=== PATIENT | female | born 1975 | race Caucasian/White ===

== ENCOUNTER 2017-04-14 11:17 | Inpatient (IN) ==
[2017-04-16] MEDS ORDERED: ACETAMINOPHEN 500 MG TABLET PO PRN (21:50)
[2017-04-16] MEDS ORDERED: TERBUTALINE 1 MG/ML VIAL SQ PRN (21:50)
[2017-04-16] MEDS ORDERED: DINOPROSTONE 10 MG VAGINAL INSERT VG ONE (21:50)
[2017-04-16] MEDS ORDERED: CALCIUM CARBONATE Chewable 500mg TABLET PO PRN (21:50)
[2017-04-16] MEDS ORDERED: CARBOPROST 250 MCG/ML INJECTION IM PRN (21:50)
[2017-04-16] MEDS ORDERED: SALINE FLUSH 10ml SYRINGE IV PRN (21:50)
[2017-04-16] MEDS ORDERED: METHYLERGONOVINE 0.2 MG/ML INJECTION IM PRN (21:50)
[2017-04-16] MEDS ORDERED: MAG-AL + SIM ORAL LIQUID 30ml PO PRN (21:50)
[2017-04-16] MEDS: LR 1,000 ML IV PRN ×2 (22:14→23:55)
--- OUTSIDE RECORDS SUMMARY | 2017-04-16 22:17 | External Medical Summary | Continuity of Care Document ---
:1975 Author Organization [facility] Address [address] [place], [place] [id number] Phone Allergies, Adverse Reactions, Alerts Substance Reaction Severity Status No Known Drug Allergies Unknown Active Medications Medication Instructions Dosage Effective Dates Status Comments (start - stop) Unisom - Active (doxylamine) 25 mg tablet Vitamin take 1 tablet by Not Available - Active tablet oral route every day Problems Condition Effective Dates (start - stop) Clinical Status Supervision of elderly multigravida, - third trimester 36 weeks gestation of - Supervision of elderly primigravida, - first trimester Supervision of elderly multigravida, - first trimester 11 weeks gestation of - Nicotine dependence, cigarettes, uncomplicated 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 Pap Smear Screening, Cervix Encounter for oth general cnsl and advice on procreation Irregular Menses Suprvsn of preg w history of infertility, first trimester Oth related conditions, first trimester Supervision of elderly primigravida, - first trimester Less than 8 weeks gestation of - Supervision of elderly primigravida, - first trimester 8 weeks gestation of - Hemorrhage in early , - unspecified Supervision of elderly multigravida, - second trimester Matern care for oth or susp poor fetl - grth, 2nd tri, unsp 20 weeks gestation of - Supervision of elderly primigravida, - second trimester 20 weeks gestation of - Supervision of elderly primigravida, - second trimester 25 weeks gestation of - Supervision of elderly multigravida, - second trimester 27 weeks gestation of - Supervision of elderly multigravida, - third trimester 33 weeks gestation of - Supervision of elderly multigravida, - third trimester Oth related conditions, - third trimester 37 weeks gestation of - Supervision of elderly multigravida, - third trimester 38 weeks gestation of - Oth related conditions, unspecified trimester Encounter for test, result - positive Matern care for oth or susp poor fetl - grth, 2nd tri, unsp 16 weeks gestation of - Abnormal glucose complicating - Supervision of elderly multigravida, - third trimester Excessive weight gain in , - third trimester 30 weeks gestation of - Supervision of elderly multigravida, - third trimester 35 weeks gestation of - Supervision of elderly multigravida, - third trimester 39 weeks gestation of - Procedures Procedure Date OB Visit No Charge Results Test Name Date and Time Measure Units Reference Range Abnormal Flag Comments Unknown Advance Directives Directive Yes / No Effective Date File Name Unknown Encounters Encounter Practice Location Reason(s) Diagnoses Date Provider Care Team Description For Visit Members Iker [place] Supervision of Apr- Arevalo In Womens elderly 5-201 [facility]. cristian Murrellavilorena, 7 700 [address] [email or web address] Medical 1522, weeks gestation [facility] of Mark Dominguez, 120, [id number], [place], [place], tel:[phone] , [place]. tel:[phone] Iker [place] Supervision of Mar- Arevalo In Womens elderly 9-201 Clau. Susie CARNES multigravida, 7 700 [address] third [email or web address] Medical 1522, weeks gestation [facility], of Mark Dominguez, 120, [id number], [place], tel:+ [phone] , [place]. tel:[phone] Iker [place] Supervision of Aug-2 Arevalo In Womens elderly 3-201 [facility], multigravida, 7 700 [address] third Medical 1522, trimesterOth [facility], related Mark Dominguez, conditions, third 120, [id number], weeks [place] gestation of [place], tel:[phone] , [place]. tel:[phone] Iker [place] Supervision of Aug-1 Arevalo In Womens elderly 5-201 [facility], multigravida, 7 700 [address] third [email or web address] Medical 1522, weeks gestation [facility], of Mark Dominguez, 120, [id number], [place], tel:+ [phone] , [place]. tel:[phone] Iker [place] Supervision of Aug-0 Arevalo In Womens elderly 8-201 [facility], multigravida, 7 700 [address] third [email or web address] Medical 1522, weeks gestation [facility], of Mark Dominguez, 120, [id number], [place], tel:+ [phone] , [place]. tel:[phone] Iker [place] Supervision of Feb-2 Arevalo In Womens elderly 4-201 [facility], multigravida, 7 700 [address] third [email or web address] Medical 1522, weeks gestation [facility], of Mark Dominguez, 120, [id number], [place], tel:[phone] , [place]. tel:[phone] Iker [place] Supervision of Jhony-0 Arevalo In Womens elderly 7-201 [facility], multigravida, 7 700 PO Box third Medical 1522, trimesterExcessiv [facility], e weight gain in Mark Dominguez, , third 120, [id number], [email or web address] weeks [place], [place] gestation of [place], tel:+ , [place]. tel:[phone] Iker [place] Abnormal glucose Hood-2 Arevalo In Womens complicating 0-201 [facility], 7 700 PO [address] Medical 1522, [facility], Mark Dominguez, 120, [id number], [place], tel:[phone] , [place]. tel:[phone] Iker [place] Supervision of Hood-1 Arevalo In Womens elderly 5-201 [facility], multigravida, 7 700 PO Box second Medical 1522, [email or web address] weeks [facility], gestation of Mark Dominguez, 120, , [facility] [place], tel:[phone] , [place]. tel: [phone] Iker [place] Supervision of May-3 Arevalo In Womens elderly 0-201 [facility], primigravida, 7 700 PO Box second Medical 1522, [email or web address] weeks [facility], gestation of Mark Dominguez, 120, , [facility] [place], tel:[phone] , [place]. tel:[phone] Iker [place] Supervision of Apr-2 Arevalo In Womens elderly 4-201 [facility], primigravida, 7 700 PO Box second Medical 1522, [email or web address] weeks [facility], gestation of Mark Dominguez, 120, , [facility] [place], tel:[phone] , [place]. tel:[phone] Iker [place] Supervision of Apr-2 Arevalo In Womens Ultrasound elderly 4-201 [facility], multigravida, 7 700 PO Box second Medical 1522, trimesterMatern [facility], care for oth or Mark Dominguez, susp poor fetl 120, [id number], grth, 2nd tri, [place], unsp20 weeks [place], tel:[phone] , [place]. tel:[phone] Iker [place] Matern care for Mar-3 Arevalo In Womens oth or susp poor 0-201 [facility], fetl grth, 2nd 7 700 PO Box tri, [email or web address] weeks Medical 1522, gestation of [facility], Mark Dominguez, 120, , [place], [place], tel:+ [phone] , [place]. tel: [phone] Iker [place] Supervision of Sep- Arevalo In Womens elderly 1-201 [facility], primigravida, 7 700 PO Box first Medical 1522, trimesterSupervis [facility], ion of elderly Mark Dominguez, multigravida, 120, [id number], first [email or web address] [place], weeks gestation [place], tel: of [phone] , [place]. tel: [phone] Iker [place] Supervision of Sep-0 Ashby In Womens elderly 2-201 Tiffanie. [facility], primigravida, 7 700 PO Box first trimester8 Medical 1522, weeks gestation [facility], of Mark Dominguez, pregnancyHemorrha 120, , [place] in early [facility] , [place], tel: unspecified [phone] , [place]. tel: [phone] Iker [place] Supervision of Arevalo Referring In Womens elderly 7-201 [facility]. Provider: Health [facility], primigravida, 7 700 Clau Arevalo PO Box first Medical [place], 700 1522, trimesterLess [facility], than [address] [facility] [place], gestation of 120, Mark 120, , [place], [place], [place], tel: [phone]. , [place]. tel: tel: [phone] Iker [place] Suprvsn of preg w Arevalo In Womens history of - [facility], infertility, 7 700 PO Box first Medical 1522, trimesterOth [facility], related Mark Dominguez, conditions, first 120, , trimester [place], tel: [phone] , [place]. tel: [phone] Associates [place] Oth Lynda In Womens related Tammi. [facility], conditions, 7 700 PO Box unspecified Medical 1522, trimesterEncounte [facility], r for Mrak Dominguez, test, result 120, [id number], positive [place], tel: [phone] , [place]. tel: [phone] Iker [place] Irregular Menses Arevalo In Womens [facility], 6 700 PO Box Medical 1522, [facility], Mark Dominguez, 120, [id number], [place], [place], tel: [phone] , [place]. tel: [phone] Iker [place] Nicotine Arevalo In Womens dependence, [facility]. [facility], cigarettes, 6 700 PO Box uncomplicatedEncn Medical 1522, tr for appeals examiner exam [facility], (general) Mark Dominguez, (routine) w/o abn 120, [id number], findingsPap Smear [place], [place], tel: CervixEncounter for ot general , . cnsl and advice tel: on procreation [phone] Family History Family Member Diagnosis Age At Onset Sister Stroke No family history of Pulmonary Embolism No family history of Venous Thrombosis Mother Diabetes Father Colon Cancer 75 Father Diabetes Mother Kidney Disease Immunizations Vaccine Date Status Comments Tdap completed Source: New Immunization Record Influenza, injectable, completed Source: New Immunization Record quadrivalent, preservative free, 3 yrs or older Rhophylac ordered Source: New Immunization Record Payers Payer name Insurance type Covered alliance party ID Authorization(s) [employer] CI [id number] [employer] CI [id number] [facility] CI [id number] [employer] CI [id number] [employer] CI [id number] [employer] CI [id number] [employer] CI [id number] Social History Type Description Quantity Date Captured Alcohol Use Details No Caffeine Use Details Unknown Tobacco Use Status Smoking Status Former smoker Vital Signs Date / Height Weight BMI Pulse Blood Temperature Respiratory Body Head BMI Time: Rate Pressure Rate Surface Circumference percentile Area 38.3 -2017 3 3:31 kg/m PM eter (2) 240.10 38.7 127/84 -2017 lbs 5 mm[Hg] 3:37 kg/m PM eter (2) Chief Complaint And Reason For Visit Unknown Chief Complaint And Reason For Visit Reason For Referral Reason For Referral Unknown Plan Of Care Date Type Action Status Goal Tobacco cessation counseling completed Appointment Desirae Garrido BOOKED Unknown Immunization Rhophylac ordered Future Order: Radiology Order Screening Bilateral Mammogram Ordered ([id number]) Future Order: Radiology Order OB Detailed Complete Ultrasound Ordered ([id number]) Date Type Problem Goal Intervention Status Start Date Unknown. History Of Present Illness Encounter Date Complaint History Of Present Illness This patient has no known history of present illness Functional Status Encounter Date Functional Assessment Cognitive Assessment Unknown Medications Administered Medication Instructions Dosage Effective Dates (start - stop) Status Comments Drug Treatment Unknown Instructions Date Instruction Additional Information labor signs group B strep screening HIV and other routine tests risk factors identified by history anticipated course of care nutrition and weight gain counseling, special diet toxoplasmosis precautions (cats / raw meat) exercise indications for ultrasound influenza vaccine environmental / work hazards travel tobacco (ask, advise, assess, assist and arrange) alcohol illicit / recreational drugs use of any medications (including supplements, vitamins, herbs, OTC drugs) smoking counseling domestic violence seat belt use genetic testing new ob handbook Zika virus assessment & precautions dentist, weight gain 20-25#
--- OUTSIDE RECORDS SUMMARY | 2017-04-16 22:17 | External Medical Summary | Continuity of Care Document ---
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 [...] Supervision of elderly multigravida, - second trimester 20 weeks gestation of - Matern care for oth or susp poor fetl - grth, 2nd tri, unsp Supervision of elderly primigravida, - second trimester [...] gestation of - Abnormal glucose complicating - Excessive weight gain in , - third trimester Supervision of elderly multigravida, - third trimester 30 weeks gestation of - Procedures Procedure Date OB Visit No Charge Cult, pathgnc orgnsm, screen Results Test Name Date and Time Measure Units Reference Range Abnormal Flag Comments Panel Description: STREPTOCOCCUS, GROUP B CULTURE STREPTOCOCCUS, GROUP B 15:00:00 SEE NOTE STREPTOCOCCUS, GROUP B CULTURE CULTURE MICRO NUMBER: [id number] TEST STATUS: FINAL SPECIMEN SOURCE: VAGINAL/ANORECTAL SPECIMEN QUALITY: ADEQUATE RESULT: No group B Streptococcus isolatedTest performed at [facility] [id number] [place] [address]Tlopjqhc: ADDISON GIBBONS DO,MPH Advance Directives Directive Yes / No Effective Date File Name Unknown Encounters Encounter Practice Location Reason(s) Diagnoses Date Provider Care Team Description For Visit Members Iker [place] Supervision of Arevalo In Womens elderly 9-201 [facility], multigravida, 7 700 [address] third [email or web address] Medical 1522, weeks gestation [facility], of Mark Dominguez, 120, [id number], [place], tel:+ [phone] , [place]. tel:[phone] Iker [place] Supervision of Aug-2 Arevalo In Womens elderly 3-201 [facility], multigravida, 7 700 PO Box third Medical 1522, trimesterOth [facility], related Mark Dominguez, conditions, third 120, [id number], [email or web address] weeks [place], [place] gestation of [place], tel:[phone] , [place]. tel:+[phone] Iker [place] Supervision of Aug-1 Arevalo In Womens elderly 5-201 [facility], multigravida, 7 700 PO Box third [email or web address] Medical 1522, weeks gestation [facility], of Mark Dominguez, 120, [id number], [place], tel:+ [phone] , [place]. tel: [phone] Iker [place] Supervision of Aug-0 Arevalo In Womens elderly 8- [facility], multigravida, 7 700 PO Box third [email or web address] Medical 1522, weeks gestation [facility], of Mark Dominguez, 120, [id number], [place], tel:+ [phone] , [place]. tel:[phone] Iker [place] Supervision of Feb-2 Arevalo In Womens elderly 4- [facility], multigravida, 7 700 PO Box third Medical 1522, weeks gestation [facility], of Mark Dominguez, 120, [id number], [place], tel:[phone] , [place]. tel:+[phone] Iker [place] Excessive weight Jhony-0 Arevalo In Womens gain in [facility], , third 7 700 PO Box trimesterSupervis Medical 1522, ion of elderly [facility], multigravida, Mark Dominguez, third [email or web address] 120, [id number], weeks gestation [place], [place], tel:[phone] , [place]. tel:+[phone] Iker [place] Abnormal glucose Hood-2 Arevalo In Womens complicating 0-201 [facility], 7 700 PO Box Medical 1522, [facility], Mark Dominguez, 120, [id number], [place], tel:[phone] , [place]. tel:[phone] Iker [place] Supervision of Hood-1 Arevalo In Womens elderly 5-201 [facility], multigravida, 7 700 PO Box second Medical 1522, [email or web address] weeks [facility], gestation of Mark Dominguez, 120, , [facility] [place], tel:[phone] , [place]. tel:[phone] Iker [place] Supervision of May-3 Arevalo In Womens elderly 0-201 [facility]. [facility], primigravida, 7 700 PO Box second Medical 1522, [email or web address] weeks [facility], gestation of Mark Dominguez, 120, , [facility] [place], tel:[phone] , [place]. tel:[phone] Iker [place] Supervision of Apr-2 Arevalo In Womens elderly 4-201 [facility]. [facility], primigravida, 7 700 PO Box second Medical 1522, [email or web address] weeks [facility], gestation of Mark Dominguez, 120, , [facility] [place], tel:[phone] , [place]. tel:[phone] Iker [place] Supervision of Apr-2 Arevalo In Womens Ultrasound elderly 4-201 [facility], multigravida, 7 700 PO Box second Medical 1522, [email or web address] weeks [facility], gestation of Mark Dominguez, pregnancyMatern 120, [id number], care for oth or [place], [place] susp poor fetl [place], tel:[phone] grth, 2nd tri, [phone] [facility] , [place]. tel:[phone] Iker [place] Matern care for Mar-3 Arevalo In Womens oth or susp poor 0-201 [facility], fetl grth, 2nd 7 700 PO Box tri, [email or web address] weeks Medical 1522, gestation of [facility], Mark Dominguez, 120, , [place], tel:+ [phone] , [place]. tel: [phone] Iker [place] Supervision of Arevalo In Womens elderly 1- [facility], primigravida, 7 700 PO Box first Medical 1522, trimesterSupervis [facility], ion of elderly Mark Dominguez, multigravida, 120, [id number], first [email or web address] [place], weeks gestation [place], tel:+ [phone] , [place]. tel: [phone] Iker [place] Supervision of Sep-0 Ashby In Womens elderly 2-201 Tiffanie. [facility], primigravida, 7 700 PO Box first trimester8 Medical 1522, weeks gestation [facility], of Mark Dominguez, pregnancyHemorrha 120, , ge in early [facility] , [place], tel: unspecified [phone] , [place]. tel: [phone] Iker [place] Supervision of Arevalo Referring In Womens elderly 7- Clau. Provider: [facility], primigravida, 7 700 Clau Arevalo PO Box first Medical K, 700 1522, trimesterLess [facility], than 8 weeks , [facility] Dr GUADARRAMA, gestation of 120, Mark 120, , [place], [place], [place], tel: [phone]. , [place]. tel: tel: [phone] Iker [place] Suprvsn of preg w Arevalo In Womens history of [facility]. [facility], infertility, 7 700 PO Box first Medical 1522, trimesterOth [facility], related Mark Dominguez, conditions, first 120, , trimester [place] THIERRY [place], tel:+ [phone] , [place]. tel: [phone] Iker [place] Oth Lynda In Womens related Tammi. [facility], conditions, 7 700 PO Box unspecified Medical 1522, trimesterEncounte [facility], for Mark Dominguez, test, result 120, [id number], positive [facility] [place], tel:+ [phone] , [place]. tel: [phone] Iker [place] Irregular Menses Arevalo In Womens [facility], 6 700 PO Box Medical 1522, [facility], Mark Dominguez, 120, [id number], [place], [place], tel: [phone] , [place]. tel: [phone] Iker [place] Nicotine Arevalo In Womens dependence, [facility], cigarettes, 6 700 PO Box uncomplicatedEncn Medical 1522, [facility] Mark Dominguez, (routine) w/o abn 120, [id number], findingsPap Smear [place], [place], [place], tel: CervixEncounter [phone] for oth general , . cnsl and advice tel: on procreation [phone] Family History Family Member Diagnosis Age At [...] Record Payers Payer name Insurance type Covered democrat ID Authorization(s) [employer] CI [id number] [employer] CI [id number] [facility] CI [id number] [employer] CI [id number] [employer] CI [id number] [employer] CI [id number] [employer] CI [id number] Social History Type Description Quantity Date Captured Alcohol Use Details No Caffeine Use Details Unknown Tobacco Use Status Smoking Status Former smoker Vital Signs Date / Height Weight BMI Pulse Blood Temperature Respiratory Body Head BMI Time: Rate Pressure Rate Surface Circumference percentile Area 237.50 38.3 /75 2017 lbs 3 mm[Hg] 3:14 kg/m PM eter (2) Chief Complaint And Reason For Visit Unknown Chief Complaint And Reason For Visit Reason For Referral Reason For Referral Unknown Plan Of Care Date Type Action Status Goal Tobacco cessation counseling completed Appointment Desirae Garrido BOOKED Unknown Immunization Rhophylac ordered Future Order: Radiology Order Screening Bilateral Mammogram Ordered ([id number]) Future Order: Radiology Order OB Detailed Complete Ultrasound Ordered ([id number]) Date Type Problem Goal Intervention Status Start [...]
--- OUTSIDE RECORDS SUMMARY | 2017-04-16 22:17 | External Medical Summary | Continuity of Care Document ---
:1975 Author Organization [facility] Address [address] [place], [place] [id number] Phone Allergies, Adverse Reactions, Alerts Substance Reaction [...] - Nicotine dependence, cigarettes, uncomplicated Encntr for chief pharmacist exam (general) - (routine) w/o abn findings Pap Smear Screening, Cervix Encounter for oth general cnsl and advice on procreation Irregular Menses Suprvsn of preg w history of infertility, first trimester Oth related conditions, first trimester Supervision of elderly primigravida, - first trimester Less than 8 weeks gestation of - Supervision of elderly primigravida, - first trimester Hemorrhage in early , - unspecified 8 weeks gestation of - Supervision of [...] third trimester 35 weeks gestation of - Oth related conditions, unspecified trimester Encounter for test, result - positive Matern care for oth or susp poor fetl - grth, 2nd tri, unsp 16 weeks gestation of - Abnormal glucose complicating - Procedures Procedure Date OB Visit No Charge Results Test Name Date and Time Measure Units Reference Range Abnormal Flag Comments Unknown Advance Directives Directive Yes / No Effective Date File Name Unknown Encounters Encounter Practice Location Reason(s) Diagnoses Date Provider Care Team Description For Visit Members Iker [place] Supervision of Arevalo In Womens elderly 8-201 [facility] marcus CARNESgravida, 7 700 [address] third [email or web address] Medical 1522, weeks gestation [facility], of Mark Dominguez, 120, [id number], [place], tel:[phone] , [place]. tel:[phone] Iker [place] Supervision of Arevalo In Womens elderly 4-201 [facility] TRICE multigravida, 7 700 [address] third [email or web address] Medical 1522, weeks gestation [facility], of Mark Dominguez, 120, [id number], [place], tel:[phone] , [place]. tel:[phone] Iker [place] Supervision of Feb-0 Arevalo In Womens elderly 7-201 [facility] TRICE, multigravida, 7 700 [address] third Medical 1522, trimesterExcessiv [facility], e weight gain in Mark Dominguez, , third 120, [id number], [email or web address] weeks [place] gestation of [place], tel:+ , [place]. tel:[phone] Iker [place] Abnormal glucose Hood-2 Arevalo In Womens complicating 0-201 [facility] PA, 7 700 [address] Medical 1522, [facility], Mark Dominguez, 120, [id number], [place], [place], tel:[phone] , [place]. tel: [phone] Iker [place] Supervision of Hood-1 Arevalo In Womens elderly 5-201 [facility] PA, multigravida, 7 700 PO Box second Medical 1522, weeks [facility], gestation of Mark Dominguez, 120, , [facility] [place], tel:[phone] , [place]. tel: [phone] Iker [place] Supervision of May-3 Arevalo In Womens elderly 0-201 [facility] [place], primigravida, 7 700 PO Box second Medical 1522, [email or web address] weeks [facility], gestation of Mark Dominguez, 120, , [facility] [place], tel:[phone] , [place]. tel: [phone] Iker [place] Supervision of Apr-2 Arevalo In Womens elderly 4-201 [facility] PA, primigravida, 7 700 PO Box second Medical 1522, [email or web address] weeks [facility], gestation of Mark Dominguez, 120, , [facility] [place], tel:[phone] , [place]. tel: [phone] Iker [place] Supervision of Apr-2 [facility]valo In Womens Ultrasound elderly 4-201 [facility] PA, multigravida, 7 700 PO Box second Medical 1522, trimesterMatern [facility], care for oth or Mark Dominguez, susp poor fetl 120, [id number], grth, 2nd tri, [place], unsp20 weeks [place], tel:[phone] gestation of , [place]. tel: [phone] Iker [place] Matern care for Mar-3 Arevalo In Womens oth or susp poor 0-201 [facility] PA, fetl grth, 2nd 7 700 PO Box tri, [email or web address] weeks Medical 1522, gestation of [facility], Mark Dominguez, 120, [id number], [place], tel:[phone] , [place]. tel: [phone] Iker [place] Supervision of Sep- Arevalo In Womens elderly 1-201 [facility], primigravida, 7 700 PO Box first Medical 1522, trimesterSupervis [facility], ion of elderly Mark Dominguez, multigravida, 120, , first [email or web address] [place], weeks gestation [place], tel:+ [phone] , [place]. tel: [phone] Iker [place] Supervision of Sep-0 Ashby In Womens elderly 2-201 Tiffanie. [facility] PA, primigravida, 7 700 PO Box first Medical 1522, trimesterHemorrha [facility], ge in early Mark Dominguez, , 120, [id number], unspecified8 [place] weeks gestation [place], tel:+ [phone] , [place]. tel: [phone] Iker [place] Supervision of Arevalo Referring In Womens elderly 7-201 [facility]. Provider: Health TRICE, primigravida, 7 700 Clau Arevalo PO Box first Medical [place], 700 1522, trimesterLess [facility], than [address] [facility] [place], gestation of 120, Mark 120, [id number], [place], [place], [place], tel:[phone]. , [place]. tel: tel: [phone] Iker [place] Suprvsn of preg w Arevalo In Womens history of - [facility] PA, infertility, 7 700 PO Box first Medical 1522, trimesterOth [facility], related Mark Dominguez, conditions, first 120, , trimester [place], [place], tel:+ [phone] , [place]. tel: [phone] Associates [facility] Oth Lynda In Womens related Tammi. [facility] PA, conditions, 7 700 PO Box unspecified Medical 1522, trimesterEncounte [facility] [place], r for Mark oDminguez, test, result 120, [id number], positive [place], tel: [phone] , [place]. tel: [phone] [facility] Irregular Menses Feb- Arevalo In Womens [facility], 6 700 PO Box Medical 1522, [facility], Mark Dominguez, 120, [id number], [place], tel: [phone] , [place]. tel: [phone] [facility] Nicotine Feb- Arevalo In Womens dependence, [facility] PA, cigarettes, 6 700 PO Box uncomplicatedEncn Medical 1522, tr for chief pharmacist exam [facility], (general) Mark Dominguez, (routine) w/o abn 120, [id number], findingsPap Smear [place], [place], [place], tel: CervixEncounter [phone] for oth general , . cnsl and advice tel: on procreation [phone] Family History Family Member Diagnosis Age At [...] Record Payers Payer name Insurance type Covered green party ID Authorization(s) [employer] CI [id number] [employer] CI [id number] [facility] CI [id number] [employer] CI [id number] [employer] CI [id number] [employer] CI [id number] [employer] CI [id number] Social History Type Description Quantity Date Captured Alcohol Use Details No Caffeine Use Details Unknown Tobacco Use Status Smoking Status Former smoker Vital Signs Date / Height Weight BMI Pulse Blood Temperature Respiratory Body Head BMI Time: Rate Pressure Rate Surface Circumference percentile Area 233.40 37.6 / lbs 7 mm[Hg] 1:43 kg/m PM eter (2) Chief Complaint And Reason For Visit Unknown Chief Complaint And Reason For Visit Reason For Referral Reason For Referral Unknown Plan Of Care Date Type Action Status Goal Tobacco cessation counseling completed Appointment Desirae Garrido BOOKED Unknown Immunization Rhophylac ordered Future Order: Radiology Order Screening Bilateral Mammogram Ordered ([id number]) Future Order: Radiology Order OB Detailed Complete Ultrasound Ordered ([id number]) Date Type Problem Goal Intervention Status Start [...]
--- OUTSIDE RECORDS SUMMARY | 2017-04-16 22:17 | External Medical Summary | Continuity of Care Document ---
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) - (routine) w/o abn findings Pap Smear Screening, Cervix Encounter for oth general cnsl and advice on procreation Irregular Menses Suprvsn of preg w history of infertility, first trimester Oth related conditions, first trimester Supervision of elderly primigravida, - first trimester Less than 8 weeks gestation of - Hemorrhage in early , - unspecified Supervision of elderly primigravida, - first trimester 8 weeks gestation of - Supervision of [...] third trimester 33 weeks gestation of - Oth related conditions, unspecified trimester Encounter for test, result - positive Matern care for oth or susp poor fetl - grth, 2nd tri, unsp 16 weeks gestation of - Abnormal glucose complicating - Procedures Procedure Date Immuniz admnin, 1 vac, sngl/combo 19 Yrs + TDAP VACCINE >7 IM OB Visit No Charge Results Test Name Date and Time Measure Units Reference Range Abnormal Flag Comments Unknown Advance Directives Directive Yes / No Effective Date File Name Unknown Encounters Encounter Practice Location Reason(s) Diagnoses Date Provider Care Team Description For Visit Members Iker [place] Supervision of Feb-2 Arevalo In Womens elderly 4-201 [facility], multigravida, 7 700 [address] third [email or web address] Medical 1522, weeks gestation [facility], of Mark Dominguez, 120, [id number], [place], tel:[phone] , [place]. tel:[phone] Iker [place] Supervision of Jhony-0 Arevalo In Womens elderly 7-201 [facility], multigravida, 7 700 PO Box third Medical 1522, trimesterExcessiv [facility] weight gain in Mark Dominguez, , third 120, [id number], [email or web address] weeks [place] gestation of [place], tel:[phone] , [place]. tel:[phone] Iker [place] Abnormal glucose Hood-2 Arevalo In Womens complicating 0-201 [facility], 7 700 PO Box Medical 1522, [place], Mark Dominguez, 120, [id number], [place], tel:[phone] , [place]. tel: [phone] Iker [place] Supervision of Hood-1 Arevalo In Womens elderly 5-201 [facility], multigravida, 7 700 PO Box second Medical 1522, [email or web address] weeks [facility], gestation of Mark Dominguez, 120, , [place], [place], tel:[phone] , [place]. tel: [phone] Iker [place] Supervision of May-3 Arevalo In Womens elderly 0-201 [facility], primigravida, 7 700 PO Box second Medical 1522, [email or web address] weeks [facility], gestation of Mark Dominguez, 120, , [place], [place], tel:[phone] , [place]. tel: [phone] Iker [place] Supervision of Apr-2 Arevalo In Womens elderly 4-201 [facility], primigravida, 7 700 PO Box second Medical 1522, [email or web address] weeks [facility], gestation [facility] Mark Dominguez, 120, , [facility] [place], tel:[phone] , [place]. tel: [phone] Iker [place] Supervision of Apr-2 Arevalo In Womens Ultrasound elderly 4-201 [facility], multigravida, 7 700 PO Box second Medical 1522, [email or web address] weeks [facility], gestation of Mark Dominguez, pregnancyMatern 120, , care for oth or [place] susp poor fetl [place], tel:+ grth, 2nd tri, [phone] [facility] , [place]. tel: [phone] Iker [place] Matern care for Mar-3 Arevalo In Womens oth or susp poor 0-201 [facility], fetl grth, 2nd 7 700 PO Box tri, [email or web address] weeks Medical 1522, gestation of [facility], Mark Dominguez, 120, , [place], [place], tel:[phone] , [place]. tel:[phone] Iker [place] Supervision of Arevalo In Womens elderly [facility], primigravida, 7 700 PO Box first Medical 1522, trimesterSupervis [facility] [place], ion of elderly Mark Dominguez, multigravida, 120, [id number], first [place], weeks gestation [place], tel: of [phone] , [place]. tel: [phone] Iker [place] Hemorrhage in Sep- Ashby In Womens early , Tiffanie. Health PA, unspecifiedSuperv 7 700 PO Box [facility] Medical 1522, primigravida, [facility], first trimester8 Mark Dominguez, weeks gestation 120, , of [place], tel: [phone] , [place]. tel: [phone] Iker [place] Supervision of Arevalo Referring In Womens elderly [facility]. Provider: Health PA, primigravida, 7 700 [facility] Arevalo PO Box first Medical K, 700 1522, trimesterLess [facility], than 8 weeks , [facility] Dr GUADARRAMA, gestation of 120, Mark 120, , [place], [place], [place], tel: [phone]. , [place]. tel: tel: [phone] Iker [place] Suprvsn of preg w Arevalo In Womens history of [facility], infertility, 7 700 PO Box first Medical 1522, trimesterOth [facility], related Mark Dominguez, conditions, first 120, , trimester [place], tel: [phone] , [place]. tel: [phone] Iker [place] Oth Lynda In Womens related Tammi. Health PA, conditions, 7 700 PO Box unspecified Medical 1522, trimesterEncounte [facility], r for Mark Dominguez, test, result 120, , positive [facility] [place], tel: [phone] , . tel: [phone] Iker [place] Irregular Menses Feb- Arevalo In Womens [facility], 6 700 PO Box Medical 1522, [facility] [place], Mark Dominguez, 120, , [facility] [place], tel: [phone] , . tel: [phone] Iker [place] Nicotine Feb-0 Arevalo In Womens dependence, [facility] PA, cigarettes, 6 700 PO Box uncomplicatedEncn Medical 1522, tr for ledge man exam [facility] [place], (general) Mark Dominguez, (routine) w/o abn 120, , findingsPap Smear [facility] [place], [place], tel: CervixEncounter [phone] [facility] [facility] [place] cns[facility] and advice tel: on procreation [phone] Family History Family Member Diagnosis Age At [...] Covered alliance party ID Authorization(s) [employer] CI [id number] [employer] CI [id number] [facility] CI [id number] [employer] CI [id number] [employer] CI [id number] [employer] CI [id number] [employer] Claims [employer] CI [id number] Social History Type Description Quantity Date Captured Alcohol Use Details No Caffeine Use Details Unknown Tobacco Use Status Smoking Status Former smoker Vital Signs Date / Height Weight BMI Pulse Blood Temperature Respiratory Body Head BMI Time: Rate Pressure Rate Surface Circumference percentile Area 235.80 38.0 122/74 -2017 lbs 5 mm[Hg] 10:01 kg/m AM sreeer (2) Chief Complaint And Reason For Visit Unknown Chief Complaint And Reason For Visit Reason For Referral Reason For Referral Unknown Plan Of Care Date Type Action Status Goal Tobacco cessation counseling completed Appointment Desirae Garrido BOOKED Unknown Immunization Rhophylac ordered Future Order: Radiology Order Screening Bilateral Mammogram Ordered ([id number]) Future Order: Radiology Order OB Detailed Complete Ultrasound Ordered ([id number]) Date Type Problem Goal Intervention Status Start Date Unknown. History Of Present Illness Encounter Date Complaint History Of Present Illness This patient has no known history of present illness Functional Status Encounter Date Functional Assessment Cognitive Assessment Unknown Medications Administered Medication Instructions Dosage Effective Dates (start - stop) Status Comments Drug Treatment Unknown Instructions Date Instruction Additional Information HIV and other routine tests risk factors [...]
[2017-04-16 22:18] VITALS: BMI 38.2
[2017-04-17] MEDS ORDERED: DiphenhydrAMINE 25 MG CAPSULE PO PRN ×2 (00:40→21:37)
[2017-04-17] MEDS ORDERED: OXYTOCIN DRIP 30 UNIT/500 ML ML IV PRN (06:00)
[2017-04-17] MEDS: D5LR 1,000 ML IV PRN ×2 (06:11→15:16)
[2017-04-17] MEDS: LR 1,000 ML IV PRN ×2 (09:05→15:17)
[2017-04-17] MEDS ORDERED: DiphenhydrAMINE 50 MG/ML INJECTION IVP PRN (09:52)
[2017-04-17] MEDS ORDERED: ONDANSETRON 4 MG/2 ML INJECTION IVP PRN ×2 (09:52→18:50)
[2017-04-17] MEDS ORDERED: NALOXONE 0.4 MG/ML INJECTION IVP PRN (09:52)
[2017-04-17] MEDS ORDERED: ROPIVACAINE 1% 10MG/ML INJ 200 MG, SUFentanil 50 MCG in NS 100 ML EPI PRN (09:52)
--- NOTE | 2017-04-17 09:52 | Anesthesia Preoperative Report ---
Anesthesia Epidural/Spinal Rec - Date and Time Date: 04/17/17 Preoperative Diagnosis: 40 wk Procedure: Labor Epidural Plan: Epidural - Vital Signs Vital Signs: Temperature 97.7 F 04/17/17 05:15 Pulse Rate 88 04/17/17 05:15 Respiratory Rate 14 04/17/17 05:15 Blood Pressure 134/75 04/17/17 05:15 Pulse Oximetry 97 04/17/17 05:15 /Para: P:0 - Medictaions & Allergies Inpatient Medications: Current Medications Acetaminophen (Tylenol) 500 - 1,000 mg PO Q4H PRN PRN Reason: Pain Last Admin: 04/17/17 00:33 Dose: 1,000 mg Al Hydroxide/Mg Hydroxide (Maalox Plus) 30 ml PO Q3H PRN PRN Reason: Indigestion Calcium Carbonate (Tums) 500 - 1,000 mg PO Q2H PRN PRN Reason: Indigestion Carboprost Tromethamine (Hemabate) 250 mcg IM O PRN PRN Reason: .Downtime Diphenhydramine HCl (Benadryl) 25 - 50 mg PO HS PRN PRN Reason: Itching Last Admin: 04/17/17 00:41 Dose: 50 mg Lactated Ringer's (Lactated Ringers) 1,000 mls @ 999 mls/hr IV .Q1H1M PRN Last Admin: 04/17/17 09:05 Dose: 999 mls/hr Dextrose/Lactated Ringer's (Dextrose 5%-Lactated Ringers) 1,000 mls @ 125 mls/ hr IV .Q8H PRN PRN Reason: Labor Last Admin: 04/17/17 06:11 Dose: 125 mls/hr Oxytocin (Pitocin Drip) 30 unit in 500 mls @ 2 mls/hr IV .Q24H PRN; Protocol PRN Reason: Induction/Augmentation Last Admin: 04/17/17 06:11 Dose: 2 mls/hr Methylergonovine Maleate (Methergine) 0.2 mg IM O PRN Misoprostol (Cytotec) 800 mcg OK ONCE PRN Sodium Chloride (Iv Flush) 10 - 80 ml IV PRN PRN PRN Reason: Flushing Terbutaline Sulfate (Brethine) 0.25 mg SQ PRN PRN Allergies/Adverse Reactions: Allergies Allergy/AdvReac Type Severity Reaction Status Date / Time No Known Allergies Allergy Verified 04/16/17 22:44 - Home Medications Home Medications: Home Medications Medication Instructions Recorded Confirmed Type Vitamins 04/02/17 History Tylenol 04/02/17 History Unisom 04/02/17 History - Surgical History Anesthesia Reactions: None Hx Family Anesthesia Reaction: No History of Motion Sickness: No - Social History Smoking Status: Current every day smoker Second Hand Exposure: No Substance Use Type: does not use Alcohol Intake Frequency: does not drink Hx Chewing Tobacco Use: No - Pertinent Findings Lab Data: CBC and BMP 04/16/17 22:05 EKG Rhythm: Normal Sinus Rhythm - Physical Exam Respiratory Exam: lungs clear Cardiovascular Exam: regular rate and rhythm, no murmur - Airway Assessment Mallampati Score: III TMD: 3 Fingerbreadths Teeth: chipped teeth/crowns Overall Assessment: may be difficult mask vent, may be difficult intubation - ASA ASA Score: 2 - Discussion Discussion: Discussed risks/options/alternatives of anesthesia and questions answered. Patient consents. Nursing pain assessment noted. Anesthesia Discussion: spouse Attestation Statement: Prior to the delivery of any anesthetic medication, I examined the patient, developed the plan, obtained the patient's consent and discussed the risk and benefits of the procedure with the patient/guardian.
[2017-04-17] MEDS ORDERED: LIDOCAINE 1.5% W/EPI 1:200,000 30ml SDV PF ONE (15:41)
[2017-04-17] MEDS ORDERED: NALBUPHINE 10 MG/ML INJECTION IVP PRN (18:50)
[2017-04-17] MEDS ORDERED: FAMOTIDINE PB 20 MG/50 ML BAG IV ONE (18:50)
[2017-04-17] MEDS ORDERED: CEFAZOLIN PREMIX (MC ONLY) 2 GM/50 ML BAG IV ONE (18:50)
[2017-04-17] MEDS ORDERED: CITRIC ACID/SODIUM CITRATE 30ml PO ONE (18:50)
[2017-04-17] MEDS ORDERED: NALOXONE 2 MG/2 ML INJECTION PFS IVP PRN (18:50)
[2017-04-17] MEDS ORDERED: MORPHINE SULFATE PF 5mg/10ml INJ (Duramorph) ONE (18:56)
[2017-04-17] MEDS ORDERED: AZITHROMYCIN IV 500 MG in NS 250ml 250 ML IV ONE (18:59)
[2017-04-17] MEDS ORDERED: ONDANSETRON 4 MG/2 ML INJECTION ONE (19:14)
[2017-04-17] MEDS ORDERED: FentaNYL 100 MCG/2 ML INJECTION ONE ×2 (19:36→19:38)
[2017-04-17] MEDS: D5LR 1,000 ML IV SCH (21:30)
[2017-04-17] MEDS ORDERED: HYDROCORTISONE 2.5% CREAM 30gm RECTALLY PRN (21:37)
[2017-04-17] MEDS ORDERED: SIMETHICONE 80 MG CHEWABLE TABLET PO PRN (21:37)
[2017-04-17] MEDS ORDERED: OXYTOCIN DRIP 30 UNIT/500 ML ML IV SCH (21:37)
[2017-04-17] MEDS: IBUPROFEN 800 MG TABLET PO PRN (21:55)
[2017-04-18] MEDS: D5LR 1,000 ML IV SCH ×2 (04:17→07:00)
--- NOTE | 2017-04-18 08:22 | OB/GYN Progress Note ---
<Robyn Thompson - Last Filed: 04/18/17 08:19> OB-PP Progress Note - General POD:: POD1 - Subjective Date: 04/18/17 Lochia: Moderate Pain: contolled Voiding: moya still in place - Objective Vital Signs: Last Vital Signs Temp 98.0 F 04/18/17 05:00 Pulse 78 04/18/17 05:00 Resp 16 04/18/17 05:00 BP 117/64 04/18/17 05:00 Pulse Ox 94 04/18/17 05:00 Urine Output: adequate General: alert and oriented Cardiovascular: regular rate,rhythm Respiratory: non-labored Abdomen: fundus firm Incision: dressed Extremities: non-tender Side: bilateral Edema Degree: 1+ Laboratory: Laboratory Results - last 24 hr 04/18/17 00:43 WBC 12.6 H D RBC 3.12 L Hgb 8.9 L D Hct 28.3 L MCV 90.7 MCH 28.5 MCHC 31.4 RDW Std Deviation 43.0 Plt Count 217 MPV 10.8 - Assessment Assessment: Primary C/S - Plan Plan: routine care, iron <Clau Arevalo - Last Filed: 04/18/17 08:30> OB-PP Progress Note - Subjective Date: 04/18/17 - Objective Vital Signs: Last Vital Signs Temp 98.0 F 04/18/17 05:00 Pulse 78 04/18/17 05:00 Resp 16 04/18/17 05:00 BP 117/64 04/18/17 05:00 Pulse Ox 94 04/18/17 05:00 Laboratory: Laboratory Results - last 24 hr 04/18/17 00:43 WBC 12.6 H D RBC 3.12 L Hgb 8.9 L D Hct 28.3 L MCV 90.7 MCH 28.5 MCHC 31.4 RDW Std Deviation 43.0 Plt Count 217 MPV 10.8 - Plan Patient seen and agree with Robyn's note. Incision intact.
[2017-04-18] MEDS: IRON POLYSACCHARIDE COMPLEX 150 MG CAPSULE PO SCH (09:33)
[2017-04-18] MEDS: IBUPROFEN 800 MG TABLET PO PRN ×2 (09:38→17:34)
--- NOTE | 2017-04-18 09:38 | Operative Note ---
DATE 04/17/2017 PREOPERATIVE DIAGNOSIS 1. 42-year-old G2, P0 at 40 weeks 3 days gestational age. 2. Arrest of descent. 3. Advanced maternal age. 4. Minimal heart tone variability. POSTOPERATIVE DIAGNOSIS 1. 42-year-old G2, P0 at 40 weeks 3 days gestational age. 2. Arrest of descent. 3. Advanced maternal age. 4. Minimal heart tone variability. PROCEDURE Primary low transverse section. SURGEON Calu Arevalo MD TRUCK CATERER Radha Gibbs MD ANESTHESIA Epidural by Vance Villalpando CRNA COMPLICATIONS None EBL 1000 mL FINDINGS Viable male , cephalic LOT position, clear fluids, Apgars 8/9, weight 4194 grams, name "Giram". Normal-appearing uterus, tubes and ovaries. INDICATIONS The patient was brought in last evening for Cervidil cervical ripening. This morning she was started on Pitocin. She received an epidural. Her membranes ruptured spontaneously returning clear fluids. When she was 2.5 cm dilated, I placed an IUPC to document adequate contractions. Over the course of the day, the Pitocin was titrated up to obtain adequate contractions and lowered in response to heart tone decelerations. She never descended past -2 station , so she was consented for a section. DESCRIPTION OF PROCEDURE The patient was taken to the operating room where her epidural was brought up to adequate surgical levels. She already had a Singh catheter in place. She was prepared and draped in the normal sterile fashion after her IUPC was removed. A Pfannenstiel skin incision was created and carried down to the fascia. The fascia was incised in the midline and extended laterally with the Mcclure scissors. The fascia was elevated and the underlying rectus muscles were dissected off. The peritoneum was entered bluntly and extended superiorly and inferiorly with good visualization of the bladder. The bladder blade was inserted. The bladder was well down on the uterus so a bladder flap was not created. The lower uterine segment was incised in a transverse fashion layer by layer with a scalpel and bluntly extended. The 's head was delivered atraumatically. The nose and mouth were suctioned. Nuchal cord x1 was reduced. The cord was clamped and cut and the infant was handed to Dr. Trejo who was asked to attend due to the unscheduled delivery. The placenta delivered spontaneously. The uterus was exteriorized and cleared of all clots and debris. There was a small uterine extension on the right edge. The uterine incision was closed with running locked 0 Monocryl. Initially the bleeding was more than what I wanted so she was given a dose of tranexamic acid and the bleeding improved. A [id number] was placed on the right edge of the incision after it was grasped with a right angle. This was suture ligated with 2-0 chromic and then good hemostasis was noted. The uterus was returned to the abdomen. The gutters were cleared of all clots and debris. The uterine incision was inspected one final time and still noted to be hemostatic. The peritoneum was closed with running 2-0 Vicryl. Hemostasis was obtained in the rectus muscles with the cautery. The fascia was closed with running 0 Vicryl. Hemostasis was obtained in the subcutaneous tissue with the cautery. Laurita's fascia was closed with 2-0 chromic. The skin was closed with 4-0 Vicryl in a subcuticular manner. Dermabond was placed. Sponge, sharp and instrument counts were correct. The patient tolerated the procedure well and was taken to the recovery room in good condition. THA
[2017-04-18] MEDS: DOCUSATE CALCIUM 240 MG CAPSULE PO SCH (09:53)
[2017-04-18] MEDS: SIMETHICONE 80 MG CHEWABLE TABLET PO SCH ×5 (09:53→23:30)
--- NOTE | 2017-04-18 11:05 | Anesthesia Postoperative Note ---
- Date and Time Date: 04/18/17 Time: 11:00 - Status Patient Participated in Evaluation: Patient Participated in Person Vital Signs: Temperature 98.6 F 04/18/17 09:20 Pulse Rate 87 04/18/17 09:20 Respiratory Rate 16 04/18/17 09:20 Blood Pressure 127/63 04/18/17 09:20 Pulse Oximetry 96 04/18/17 09:20 Respiratory Function: Airway Patent, Regular Respirations Cardiovascular Function: Regular Pulse Mental Status: Alert and Oriented Pain Intensity: 5 (oral pain meds giving) Hydration: Taking PO Fluids Complications During Recover: None Apparent Post Anesthesia Care Notes: moves all extremeties without problems - Follow-Up Instructions Instructions: Per Surgeon
[2017-04-18] MEDS: HYDROCODONE/APAP 5mg/325mg TABLET PO PRN ×2 (16:51→23:30)
[2017-04-19] MEDS: HYDROCODONE/APAP 5mg/325mg TABLET PO PRN (04:35)
[2017-04-19] MEDS: IBUPROFEN 800 MG TABLET PO PRN ×2 (04:36→13:49)
[2017-04-19] MEDS ORDERED: HYDROCODONE/APAP 7.5 MG/325 MG TABLET PO PRN (07:54)
--- NOTE | 2017-04-19 07:56 | OB/GYN Progress Note ---
OB-PP Progress Note - General PPD2 - Subjective Date: 04/19/17 Lochia: Minimal Pain: moderate Pain: She would like a stronger pain pill. Voiding: voiding - Objective Vital Signs: Last Vital Signs Temp 97.7 F 04/18/17 23:39 Pulse 75 04/19/17 04:15 Resp 18 04/19/17 04:15 BP 138/87 04/19/17 04:15 Pulse Ox 96 04/19/17 04:15 General: alert and oriented Abdomen: fundus firm, non-tender Incision: normal, clean, no erythema, intact Extremities: non-tender - Assessment Assessment: Primary C/S - Plan Plan: routine care, discharge home, continue PNV Increase [place] to 7.5 mg.
[2017-04-19] MEDS: DOCUSATE CALCIUM 240 MG CAPSULE PO SCH (09:26)
[2017-04-19] MEDS: IRON POLYSACCHARIDE COMPLEX 150 MG CAPSULE PO SCH (09:26)
[2017-04-19] MEDS: SIMETHICONE 80 MG CHEWABLE TABLET PO SCH (09:26)
[2017-04-19] MEDS: D5LR 1,000 ML IV SCH (15:42)
[2017-04-19 16:18] VITALS: BP 120/65; PULSE 77; RESP 18; TEMP 98; O2SAT 96
== END 2017-04-19 17:28 | disposition home or self-care (01) | DRG 765 ==
LOC: MC 04-16 21:46
PROVIDERS: ADMIT Obstetrics & Gynecology; ATTEND Obstetrics & Gynecology